=== PATIENT | male | born 1955 | race Caucasian/White ===

== ENCOUNTER → 2023-05-17 11:12 | Outpatient (REF) | payer BC, SELFPAY | LOC: RAD 11:12 | PROVIDERS: ATTENDING PHYSICIAN Specialist; FAMILY PHYSICIAN Family Medicine | DX: R31.0 Gross hematuria (principal) | CPT/HCPCS: 74178; Q9967 ==

== ENCOUNTER 2023-06-11 06:33 | Day surgery (SDC) | payer BC, SELFPAY ==
[2023-06-03 09:08] VITALS: BMI 27.0
[2023-06-03 10:06] LABS: Hematocrit 46.4 % (39.0-52.0); Hemoglobin 15.9 g/dL (13.0-18.0); Mean Corp Hgb Conc. 34.3 g/dL (33.0-37.0); Mean Corpuscular Hgb 29.4 pg (27.0-31.0); Mean Corpuscular Volume 85.8 fL (80.0-94.0); Mean Platelet Volume 10.5 fL (7.4-10.4); Platelet Count 227 10^3/uL (130-400); Red Blood Cell Count 5.41 10^6/uL (4.70-6.10); Red Cell Dist. Width 12.8 % (11.5-14.5); White Blood Cell Count 6.1 10^3/uL (4.8-10.8)
[2023-06-03 10:21] LABS: INR 1.02; PT 13.2 Sec (11.4-14.6)
[2023-06-03 10:22] LABS: APTT 27.2 Sec (23.4-35.0)
[2023-06-03 10:23] LABS: Blood Urea Nitrogen 19 mg/dl (9-20); Calcium 9.9 mg/dl (8.4-10.2); Carbon Dioxide 24 mmol/L (22-30); Chloride 107 mmol/L (98-107); Estimated Creatinine Clearance 83 ml/min; Glucose 92 mg/dl (70-99); Sodium 138 mmol/L (135-145); eGFR > 60.00
[2023-06-03 10:27] LABS: Urine Albumin Negative (Neg - Trace); Urine Bilirubin Negative (Negative); Urine Character Clear (Clear); Urine Color Yellow; Urine Glucose Negative (Negative); Urine Ketone Negative (Negative); Urine Leukocyte Negative (Negative); Urine Nitrite Negative (Negative); Urine Occult Blood Negative (Negative); Urine Specific Gravity 1.005 (<1.030); Urine Urobilinogen Negative (Neg - 1+)
[2023-06-11] VITALS (14 sets, daily range): BP systolic 96–156; BP diastolic 59–91; BMI 27.0
[2023-06-11] MEDS: NORMOSOL-R 1000 IV (08:45)
--- NOTE | 2023-06-11 13:06 | W.PN.ADMIT ---
Progress Note - Admit
Progress Note - Admit
pt s/p TURP
admit for hematuria requiring CBI
[2023-06-11] MEDS: DILAUDID 0.25 MG IV (13:17)
[2023-06-11] MEDS: DILAUDID 0.5 MG IV ×2 (13:34→21:24)
[2023-06-11 13:37] LABS: Hematocrit 42.4 % (39.0-52.0); Mean Corp Hgb Conc. 35.4 g/dL (33.0-37.0); Mean Corpuscular Hgb 29.6 pg (27.0-31.0); Mean Corpuscular Volume 83.6 fL (80.0-94.0); Mean Platelet Volume 9.8 fL (7.4-10.4); Platelet Count 256 10^3/uL (130-400); Red Blood Cell Count 5.07 10^6/uL (4.70-6.10); White Blood Cell Count 14.1 10^3/uL (4.8-10.8)
[2023-06-11 14:35] LABS: Blood Urea Nitrogen 18 mg/dl (9-20); Carbon Dioxide 24 mmol/L (22-30); Chloride 98 mmol/L (98-107); Estimated Creatinine Clearance 83 ml/min; Glucose 113 mg/dl (70-99); Potassium 4.8 mmol/L (3.5-5.1); Sodium 131 mmol/L (135-145); eGFR > 60.00
[2023-06-11 14:36] LABS: Calcium 8.5 mg/dl (8.4-10.2)
--- NOTE | 2023-06-11 14:52 | PTCARENOTE ---
Patient received from PACU in bed; Continuous bladder irrigation currently running, urine pink-tinged; Patient oriented to room and unit; Call zuleta within reach; Bed in lowest position, wheels locked; Assessment ongoing
[2023-06-11] MEDS: LASIX 20 MG IV (15:32)
[2023-06-11] MEDS: NSS with KCL 20 MEQ 1000 IV (16:15)
[2023-06-11] MEDS: VALIUM INJECTION 5 MG IV ×2 (16:41→20:13)
[2023-06-11] MEDS: VIBRAMYCIN 100 MG PO (19:49)
[2023-06-11] MEDS: COLACE 100 MG PO (19:49)
[2023-06-12] MEDS: NSS with KCL 20 MEQ 1000 IV (00:45)
[2023-06-12] MEDS: VALIUM INJECTION 5 MG IV (00:45)
[2023-06-12] MEDS: DILAUDID 0.5 MG IV ×2 (00:46→06:09)
[2023-06-12 03:00] VITALS: BP 105/59
--- NOTE | 2023-06-12 05:29 | DOWNTIME ---
There was a [facility] [employer] Downtime on 06/12/2023 from 0100 to 06/12/2023 at 0439. Downtime documentation of patient's care, including medication administrations, has been reconciled in the electronic record per guidelines. Refer to the
patient's paper chart under the miscellaneous tab to see printed paper medication records and downtime forms.
[2023-06-12 06:05] LABS: Hematocrit 39.9 % (39.0-52.0); Mean Corp Hgb Conc. 35.1 g/dL (33.0-37.0); Mean Corpuscular Hgb 29.4 pg (27.0-31.0); Mean Corpuscular Volume 83.6 fL (80.0-94.0); Mean Platelet Volume 9.9 fL (7.4-10.4); Platelet Count 267 10^3/uL (130-400); Red Blood Cell Count 4.77 10^6/uL (4.70-6.10); Red Cell Dist. Width 12.8 % (11.5-14.5); White Blood Cell Count 11.4 10^3/uL (4.8-10.8)
[2023-06-12 06:35] LABS: Blood Urea Nitrogen 21 mg/dl (9-20); Calcium 8.7 mg/dl (8.4-10.2); Carbon Dioxide 25 mmol/L (22-30); Chloride 105 mmol/L (98-107); Estimated Creatinine Clearance 83 ml/min; Glucose 112 mg/dl (70-99); Potassium 4.4 mmol/L (3.5-5.1); Sodium 135 mmol/L (135-145); eGFR > 60.00
[2023-06-12 07:40] VITALS: BP 103/63
--- NOTE | 2023-06-12 08:06 | W.PN.URO.CBU ---
Today's Communication / Plan
-
routine post TURP care
Assessment / Plan
-
s/p TURP
UOOB to chair
wean cbi- off at midnight with planed TOV in am
Diagnosis
-
Date of Service: June 12, 2023
-
Patient Diagnosis:
bph
hematuria
Post Op Day:
s/p TURP
Subjective
-
pt looks and feels good- mild bladder discomfort
urine clear to light pink on slow cbi drip
na level normal
Objective
-
Vital Signs
Temp Pulse Resp BP Pulse Ox
97.5 F 58 18 105/59 96
06/12/23 03:00 06/12/23 03:00 06/12/23 03:00 06/12/23 03:00 06/12/23 03:00
Intake and Output
06/11/23 06/12/23 06/13/23
06:59 06:59 06:59
Intake Total 1800 / 1800
Output Total 53311 / 40574
Balance -60399 / -89757
Intake:
Oral fluids 200 / 200
IV fluids (Total) 1600 / 1600
normo 100 / 100
Output:
Urine, Gomez 50818 / 38081
True Urine Output from CBI 6250 / 6250
Laboratory Results
06/12/23 05:51
06/12/23 05:51
Review of Systems
-
Constitutional: Fatigue
Respiratory: No Symptoms
Cardiac: No Symptoms
Abdomen/GI: No Symptoms
Physical Exam
-
General - no acute distress
Abdomen - soft, non-tender
Genitalia - gomez in place
[2023-06-12] MEDS: ZESTRIL 5 MG PO (09:40)
[2023-06-12] MEDS: CRESTOR 10 MG PO (09:41)
[2023-06-12] MEDS: COLACE 100 MG PO ×2 (09:41→20:52)
[2023-06-12] MEDS: VIBRAMYCIN 100 MG PO ×2 (09:41→20:53)
[2023-06-12 11:35] VITALS: BP 97/53
[2023-06-12 15:30] VITALS: BP 104/51
[2023-06-12 16:17] VITALS: BP 104/51
[2023-06-12] MEDS: ULTRAM 50 MG PO (16:24)
[2023-06-12] MEDS: TYLENOL 650 MG PO ×2 (16:24→20:54)
[2023-06-12 23:30] VITALS: BP 114/65
--- NOTE | 2023-06-13 00:15 | PTCARENOTE ---
At 00:05 CBI stopped per MD order; Input 3000, Output 3800, True UOP 800, clear/yellow urine.
[2023-06-13] MEDS: ULTRAM 50 MG PO ×2 (00:34→08:48)
[2023-06-13 07:49] VITALS: BP 106/68
--- NOTE | 2023-06-13 08:21 | W.PN.URO.CBU ---
Today's Communication / Plan
-
gomez out for TOV
Assessment / Plan
-
s/p TURP
gomez removed for TOV
knee pain- no susp of dvt- suspect due to positioning- will give toradol and UOOB ambulate and observe
if pt stable this afternoon- plan for discharge- instructions reviewed
Diagnosis
-
Date of Service: June 13, 2023
-
Patient Diagnosis:
bph
hematuria
Post Op Day:
s/p TURP
Subjective
-
pt's urine clear since cbi stopped at midnight
chief c/o is of bilateral knee pain
no calf swelling or evid of dvt
Objective
-
Vital Signs
Temp Pulse Resp BP Pulse Ox
97.6 F 62 16 114/65 97
06/12/23 23:30 06/12/23 23:30 06/12/23 23:30 06/12/23 23:30 06/12/23 23:30
Intake and Output
06/12/23 06/13/23 06/14/23
06:59 06:59 06:59
Intake Total 1800 / 1800 480 / 480
Output Total 20849 / 59266 1550 / 1550
Balance -46301 / -04838 -1070 / -1070
Intake:
Oral fluids 200 / 200 480 / 480
IV fluids (Total) 1600 / 1600
normo 100 / 100
Output:
Urine, Gomez 33525 / 46066
Urine, Voided 300 / 300
True Urine Output from CBI 6250 / 6250 1250 / 1250
Laboratory Results
06/12/23 05:51
06/12/23 05:51
Review of Systems
-
Constitutional: No Symptoms
Respiratory: No Symptoms
Cardiac: No Symptoms
Abdomen/GI: No Symptoms
Physical Exam
-
General - no acute distress
Abdomen - soft, non-tender
Genitalia - normal- gomez removed
Neuro - AOx3, no motor deficits
Extremities - no clubbing, no cyanosis, no edema- mild edema around the knees
[2023-06-13] MEDS: CRESTOR 10 MG PO (08:48)
[2023-06-13] MEDS: TORADOL 30 MG IV (08:48)
[2023-06-13] MEDS: VIBRAMYCIN 100 MG PO (08:48)
[2023-06-13] MEDS: COLACE 100 MG PO (08:48)
[2023-06-13] MEDS: TYLENOL 650 MG PO (08:48)
[2023-06-13] MEDS: ZESTRIL 5 MG PO (08:49)
--- NOTE | 2023-06-13 11:12 | CM ---
Addendum entered by Radha Braxton 06/13/23 16:19:
Plan: discharge to home today; no needs; spouse will provide transport home
Original Note:
Met with patient at the bedside; initial assessment completed
Pharmacy verified: [facility] - [place], [place]
Patient reported he lives in a 3 story home including basement; 2 steps to enter; 14 steps between floors; railings on stairs; powder room on the 1st floor; 2nd floor bathroom has walk-in shower with seat
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
SNF/Rehab/Home Health utilization history: none
Transportation: will provide ride home
Plan: discharge to home without services
[2023-06-13 16:05] VITALS: BP 118/96
--- NOTE | 2023-06-13 16:15 | PTCARENOTE ---
Patient ready for discharge. Removed IV. Went over discharge instructions with patient. Patient was escorted out of hospital with assistance of another RN.
== END 2023-06-13 17:07 | disposition home or self-care (01) ==
LOC: SDS 06:33
PROVIDERS: ATTENDING PHYSICIAN Specialist; FAMILY PHYSICIAN Family Medicine; OTHER PHYSICIAN Internal Medicine Cardiovascular Disease
DX: N40.1 Benign prostatic hyperplasia with lower urinary tract symptoms (principal); R31.0 Gross hematuria
CPT/HCPCS: 52601; 88305; 36415; 80048; 81003; 85027; 85610; 85730; 88344; 93005

== ENCOUNTER 2023-06-13 22:04 | Emergency (ER) | payer BC, SELFPAY ==
[2023-06-13 22:07] VITALS: BP 98/56
[2023-06-13 22:19] LABS: % Basophils 0.6 % (0-2); % Eosinophils 0.7 % (0-6); % Immature Granulocytes 0.6 % (0-0.5); % Lymphocytes 6.6 % (20.5-51.1); % Monocytes 8.3 % (1.7-9.3); % Neutrophils 83.2 % (42.2-75.2); Absolute Basophils 0.1 10^3/uL (0-0.2); Absolute Eosinophils 0.1 10^3/uL (0-0.7); Absolute Immature Granulocytes 0.1 10^3/uL (0-0.05); Absolute Monocytes 1.2 10^3/uL (0.1-0.6); Absolute Neutrophils 12.2 10^3/uL (1.4-6.5); Hematocrit 41.9 % (39.0-52.0); Mean Corp Hgb Conc. 35.8 g/dL (33.0-37.0); Mean Corpuscular Hgb 29.4 pg (27.0-31.0); Mean Platelet Volume 10.2 fL (7.4-10.4); Nucleated Red Blood Cells % 0 % (-); Platelet Count 267 10^3/uL (130-400); Red Blood Cell Count 5.11 10^6/uL (4.70-6.10); White Blood Cell Count 14.6 10^3/uL (4.8-10.8)
[2023-06-13 22:39] LABS: Blood Urea Nitrogen 22 mg/dl (9-20); Calcium 9.1 mg/dl (8.4-10.2); Carbon Dioxide 18 mmol/L (22-30); Chloride 103 mmol/L (98-107); Glucose 132 mg/dl (70-99); Sodium 129 mmol/L (135-145); eGFR > 60.00
[2023-06-13 23:29] LABS: Troponin I 0.024 ng/ml
[2023-06-14 00:15] VITALS: BP 120/60
[2023-06-14 00:16] VITALS: BP 117/56
--- NOTE | 2023-06-14 00:22 | ED.GENMED ---
History of Present Illness
General
Chief Complaint: Fainting/Passed Out
Time Seen by Provider: 06/14/23 00:13
Travel History
Have you had any contact with someone who has COVID-19?: No
Do you have any symptoms of coronavirus? Fever > 100 degrees, chills, cough, shortness of breath, sore throat, loss of taste or smell, muscle aches, or headache?: No
History of Present Illness
History of Present Illness:
HPI: The patient recently had TURP. He was discharged about 12 hours ago. In the afternoon he had some nausea and felt like he was going to pass out then he slept for 3 hours. He has been voiding but more recently the urine appears a little more
bloody. Couple of hours ago he passed out then wanted him to be seen here. He never had any chest pain. He does not have sensation of full bladder.
EXAM:
GENERAL: Well appearing in no distress, but appears somewhat fatigued
HEENT: Moist oral mucosa
CARDIOVASCULAR: No murmurs, normal heart rate, regular rhythm, No chest wall tenderness
PULMONARY: No respiratory distress, breath sounds are clear and equal
ABDOMEN: Soft with no peritoneal signs, no tenderness, urine at bedside is dark bloody
NEUROLOGIC: Excellent strength all extremities, no coordination deficits
PSYCHIATRIC: Appropriate mental status, normal insight and judgement
EXTREMITIES: Nontender, no edema, moves all extremities equally
SKIN: No rash, no lesions
TIME OF INITIAL ENCOUNTER: 12:45 AM
NUMBER AND COMPLEXITY OF PROBLEMS ADDRESSED AT THE ENCOUNTER
� Chronic conditions affecting care: High blood pressure, hyperlipidemia, skin cancer, TURP 06/11/2023 Dr. Arenas
� Acute Exacerbation and/or Progression of Chronic Illness: Acute problem
� Differential Diagnosis includes: Anemia, sepsis, dehydration, EDWARD
AMOUNT AND/OR COMPLEXITY OF DATA TO BE REVIEWED AND ANALYZED
� I performed an independent evaluation of and my interpretation is:
EKG: Sinus 78, LVH with associated ST abnormality
CT:
X-rays:
Laboratory Studies: White count 14.6, hemoglobin 15.0, bicarb slightly low at 18, BUN 22, creatinine 0.9, troponin 0.024
Other:
� Review of other/old records: I reviewed the patient's records when he was here for the last hospitalization for the TURP
� Clinical information was obtained by an independent historian: I spoke to the at bedside
� Prescriptions/Medications Considered but not given:
� Further testing considered but not performed:
RISK OF COMPLICATIONS AND/OR MORBIDITY OR MORTALITY OF PATIENT MANAGEMENT
� Social determinants of health affecting care: Lives at home
� Discussion with other providers: I notified Dr. Kowalski of the patient's evaluation in the ED.
� Escalation of care including admission/observation vs risk of discharge considered: The patient's bicarb is low, his triage blood pressure was somewhat low. He was given IV fluids, on reassessment at 1:45 AM, he feels markedly
improved. He no longer is nauseated. The patient is afebrile and vital signs are more consistent with dehydration as opposed to sepsis.
Past History
Past History
ED Past Medical History: HTN, Hypercholesterolemia and Other (Kidney stones)
ED Past Surgical History: Appendectomy, Orthopedic (Right bone spur removed, ) and Urological (TURP, Ureteral stent, )
Social History
Tobacco: Non-smoker
Alcohol: Occasional
Drug: None
Personal:
Living: with family
Employment: Employed
Phy Exam
Physical Exam
Physical Exam:
See HPI
Course
Orders/Labs/Results
Orders:
Orders
06/13/23 22:12
EKG [Electrocardiogram (*1)] Urgent
Reason for Study: Syncope
EKG- Treatment ONCE
06/13/23 22:13
Basic Metabolic Panel Urgent
Complete Blood Count/With Diff Urgent
06/13/23 23:00
Troponin I Urgent
06/14/23 00:52
0.9% Sodium Chloride 1000 ml [Nss] 1,000 ml IV BOLUS
Abnormal Lab Results
06/13/23
22:13
WBC 14.6 H 10^3/uL
(4.8-10.8)
Abs Immat Gran (auto) 0.1 H 10^3/uL
(0-0.05)
Absolute Neuts (auto) 12.2 H 10^3/uL
(1.4-6.5)
Absolute Lymphs (auto) 1.0 L 10^3/uL
(1.2-3.4)
Absolute Monos (auto) 1.2 H 10^3/uL
(0.1-0.6)
Immature Gran % 0.6 H %
(0-0.5)
Neutrophils % 83.2 H %
(42.2-75.2)
Lymphocytes % 6.6 L %
(20.5-51.1)
Sodium 129 L mmol/L
(135-145)
Carbon Dioxide 18 L mmol/L
(22-30)
BUN 22 H mg/dl
(9-20)
Glucose 132 H mg/dl
(70-99)
06/13/23 22:13
06/13/23 22:13
Vital Signs
Initial and Last Documented VS:
Initial Vital Signs
Temp Pulse Resp BP Pulse Ox
98.6 F 78 16 98/56 97
06/13/23 22:07 06/13/23 22:07 06/13/23 22:07 06/13/23 22:07 06/13/23 22:07
Last Documented Vital Signs
Temp Pulse Resp BP Pulse Ox
98.6 F 78 16 109/63 98
06/13/23 22:07 06/13/23 22:07 06/13/23 22:07 06/14/23 01:00 06/14/23 01:45
*Critical Care Note
Total Time (30-74mins, 75-104mins- exclusive of procedures): Not Applicable
ED Attending Note
-
Portions of this chart may have been created with voice recognition software.� Occasional wrong word or��sound alike� substitutions may have occurred due to the inherent limitations of voice recognition software.
Discharge Plan
Departure
Patient Disposition: Home (Routine Discharge)
Date of Disposition: 06/14/23
Time of Disposition: 01:53
Patient with high blood pressure during this ER visit?: No
Discharge Problem:
Syncope, Dehydration
Prescriptions:
No Action
lisinopril 5 MG tablet
5 mg PO DAILY
rosuvastatin 10 mg Tablet
10 mg PO DAILY
doxycycline hyclate 100 mg capsule
100 mg PO BID Qty: 10 0RF
Referrals:
Rio Calderón, [Family Provider] -
Activity Restrictions/Additional Instructions:
Your bicarbonate level is slightly low and your blood pressure was a little bit low when you first got here. I suspect that you are somewhat dehydrated as you feel improved after IV fluids were given. I did notify Dr. Kowalski, Dr. Arenas's
associate. Return here if worse.
Interventions
Interventions:
*Risk Screen - Suicide Last Done: 06/13/23 22:07
*General Assessment Last Done: 06/13/23 22:07
*Neglect/Abuse Screening Last Done: 06/13/23 22:07
ED- Fall Risk Assessment Last Done: 06/14/23 00:22
*ED COVID-19 Vaccine History Last Done: 06/13/23 22:07
*Nursing Disposition Last Done: 06/14/23 02:19
ED- Cardiac Assessment Last Done: 06/14/23 00:22
ED- Neurological Assessment Last Done: 06/14/23 00:22
Discharge Date and Time
Discharge Date/Time: 06/14/23 02:19
Print Language: BELARUSIAN
[2023-06-14] MEDS: NSS 1000 IV (00:55)
[2023-06-14 01:00] VITALS: BP 109/63
== END 2023-06-14 02:19 | disposition home or self-care (01) ==
LOC: EMR 22:04
PROVIDERS: EMERGENCY PHYSICIAN Emergency Medicine; FAMILY PHYSICIAN Family Medicine
DX: R55 Syncope and collapse (principal); E86.0 Dehydration
CPT/HCPCS: 99284; 96360; 80048; 84484; 85025; 93005

== ENCOUNTER 2024-01-18 11:48 | Emergency (ER) | payer MEDICARE, BC, SELFPAY ==
[2024-01-18 12:03] VITALS: BP 174/100
--- NOTE | 2024-01-18 13:07 | ED.GENMED ---
History of Present Illness
General
Chief Complaint: Musculo-Skeletal Complaint
Source: patient
Exam Limitations: none
Time Seen by Provider: 01/18/24 12:14
Nursing documentation reviewed up to this point in time: agreed with
History of Present Illness
History of Present Illness:
68 y/o M
h/o htn, hld
had gone up a few steps and was turning around to go back down and missed a step and fell landing on flexed R knee
pain and swelling and inability to fully weight bear
had soft brace and crutches from previous issue that he put on
he has not had any other pain like hip, ankle/foot
nothing taken for pain today
Past History
Past History
ED Past Medical History: HTN, Hypercholesterolemia and Other (Kidney stones)
ED Past Surgical History: Appendectomy, Orthopedic (Right bone spur removed, ) and Urological (TURP, Ureteral stent, )
Social History
Tobacco: Non-smoker
Alcohol: Occasional
Drug: None
Personal:
Living: with family
Employment: Employed
Review of Systems
Review of Systems
Allergies reviewed?: Yes
All Other Systems: Not applicable
Phy Exam
Physical Exam
Physical Exam:
GENERAL: Alert , in no apparent distress, comfortable at rest
HEAD: NCAT
CV: 2+ DP PULSES B/L
NEUROLOGICAL: Alert and oriented, no focal neuro deficits, , 5/5 strength, sensation intact, ambulation slight limp right leg
SKIN: Warm and dry, no wounds
MUSCULOSKELETAL: moderate R lower knee swelling
very limited painful ROM
posterior effusion
pt has high riding patella, no dislocation latearlly
tendernses to patellar tendon and a defect palpated
no active knee extension
foot and ankle and hip normal
PSYCH: Normal and appropriate interaction.
Course
Orders/Labs/Results
Orders:
Orders
01/18/24 11:50
Knee, Right 4 or More Views [CR Knee- Right 4 Or More View*] Urgent
Comment:
Reason For Exam: pain
Vital Signs
Initial and Last Documented VS:
Initial Vital Signs
Temp Pulse Resp BP Pulse Ox
36.6 C 73 18 174/100 95
01/18/24 12:03 01/18/24 12:03 01/18/24 12:03 01/18/24 12:03 01/18/24 12:03
Last Documented Vital Signs
Temp Pulse Resp BP Pulse Ox
36.6 C 73 18 174/100 95
01/18/24 12:03 01/18/24 12:03 01/18/24 12:03 01/18/24 12:03 01/18/24 12:03
MDM/Problems Addressed
Differential Diagnosis Includes:
knee fx, patellar tendon rupture
MDM/Problems Addressed:
68-year-old male with a knee injury after missing a step and falling on a flexed right knee. He has had painful weightbearing and very limited knee extension. Patient has no other complaints. He does have swelling to the inferior part of his
knee with a defect at the palpation site of the patellar tendon
X-ray independently reviewed by me no fracture but with a high riding patella and moderate arthritis. Unable to actively extend his knee from flexion position suggestive of a patellar tendon rupture. I spoke with Dr. Carlson on-call for [facility]
where he has been seen before who recommended knee immobilizer and crutches and will see him in the office. Patient is daughter is getting in 3 weeks. This will likely require surgery. Stable for discharge
*Critical Care Note
Total Time (30-74mins, 75-104mins- exclusive of procedures): Not Applicable
ED Attending Note
-
Portions of this chart may have been created with voice recognition software.� Occasional wrong word or��sound alike� substitutions may have occurred due to the inherent limitations of voice recognition software.
Discharge Plan
Departure
Patient Disposition: Home (Routine Discharge)
Date of Disposition: 01/18/24
Time of Disposition: 13:14
Patient with high blood pressure during this ER visit?: Yes
Condition: Good
Covid-19: Not Applicable
Discharge Problem:
Patellar tendon rupture
Instructions: Knee Immobilizer (DC), Patellar Tendinopathy (DC), BLOOD PRESSURE
Prescriptions:
No Action
lisinopril 5 MG tablet
5 mg PO DAILY
rosuvastatin 10 mg Tablet
10 mg PO DAILY
doxycycline hyclate 100 mg capsule
100 mg PO BID Qty: 10 0RF
Referrals:
Lenny Carlson MD [Active] - Follow up in 2-3 days
Rio Calderón DO [Family Provider] -
Activity Restrictions/Additional Instructions:
It Is highly likely that you tore your patellar tendon. It is important to keep the knee immobilizer when you are up and about. You can take it off while you are resting and ice off-and-on. Take ibuprofen 400 or 600 mg 2-3 times a day with food.
You can also take Tylenol 3 times a day as needed. Use the crutches to help you avoid weightbearing or partially weight-bear as tolerated. Try to limit how much weight you are putting on your foot. I spoke with Dr. Carlson from orthopedics and he
says he will have his office team reach out to call you and get you an appointment so that you could have prompt repair of this. They usually do require surgery. Return to the ER for any concerns
Interventions
Interventions:
*Risk Screen - Suicide Last Done: 01/18/24 12:03
*General Assessment Last Done: 01/18/24 12:03
*Neglect/Abuse Screening Last Done: 01/18/24 12:03
*ED COVID-19 Vaccine History Last Done: 01/18/24 13:57
*Nursing Disposition Last Done: 01/18/24 13:30
ED-Musculoskeletal Assessment Last Done: 01/18/24 13:58
Discharge Date and Time
Discharge Date/Time: 01/18/24 13:30
Print Language: BELARUSIAN
== END 2024-01-18 13:30 | disposition home or self-care (01) ==
LOC: EMR 11:48
PROVIDERS: EMERGENCY PHYSICIAN Emergency Medicine; FAMILY PHYSICIAN Family Medicine
DX: S86.811A Strain of other muscle(s) and tendon(s) at lower leg level, right leg, initial encounter (principal); W10.9XXA Fall (on) (from) unspecified stairs and steps, initial encounter; I10 Essential (primary) hypertension; E78.00 Pure hypercholesterolemia, unspecified
CPT/HCPCS: 99283; 29505; 73564

== ENCOUNTER → 2024-03-18 15:46 | Outpatient (REF) | payer MEDICARE, BC, SELFPAY | LOC: RCS 15:46 | PROVIDERS: ATTENDING PHYSICIAN Internal Medicine Cardiovascular Disease; FAMILY PHYSICIAN Family Medicine | DX: I10 Essential (primary) hypertension (principal) | CPT/HCPCS: 93306 ==